=== PATIENT | male | born 1955 | race African-American/Black ===

== ENCOUNTER 2021-12-12 08:31 | Emergency (ER) | payer MEDICARE, MEDICAID ==
[~2021-12-12] VITALS: Ht 172.7 cm; Wt 91.0 kg
[2021-12-12] MEDS ORDERED: NITROGLYCERIN 0.4MG TABLET SL SL PRN (09:00)
[2021-12-12] MEDS ORDERED: ASPIRIN 81MG TABLET PO ONE (09:00)
[2021-12-12 09:35] VITALS: BP 126/86
[2021-12-12 09:40] LABS: BASOPHILS % 0.3 % (0.0-2.0); EOSINOPHILS % 1.2 % (0.0-5.0); HEMATOCRIT. 46.9 % (42.0-52.0); HEMOGLOBIN. 16.3 g/dL (14.0-18.0); LYMPHOCYTES % 25.7 % (20.0-50.0); MEAN CORPUSCULAR HEMOGLOBIN 31.2 pg (28.0-32.0); MEAN CORPUSCULAR VOLUME 89.8 fL (80.0-94.0); MONOCYTES % 9.4 % (2.0-8.0); NEUTROPHILS % 63.4 % (40.0-76.0); PLATELET 189 x1000/uL (130-400); RED BLOOD CELL COUNT 5.23 mill/uL (4.7-6.1); RED CELL DISTRIBUTION WIDTH 13.8 % (11.6-14.6)
[2021-12-12 09:44] LABS: CHLORIDE 108 mEq/L (98-107)
== END 2021-12-12 22:21 | disposition left against medical advice (07) ==
LOC: ER 08:31 → EDBEDREQ 09:42 → ENRESERV 16:22 → ER 22:21 → CANBEDREQ 12-13 17:17
DX: R07.89 Other chest pain (principal); R73.03 Prediabetes; I25.10 Atherosclerotic heart disease of native coronary artery without angina pectoris; E78.5 Hyperlipidemia, unspecified; Z95.5 Presence of coronary angioplasty implant and graft; Z85.46 Personal history of malignant neoplasm of prostate
CPT/HCPCS: 36415; 71045; 80053; 83880; 84484; 85025; 93005; 99285

== ENCOUNTER 2022-03-24 08:43 | Emergency (ER) | payer MEDICARE, MEDICAID ==
[~2022-03-24] VITALS: Ht 172.7 cm; Wt 91.0 kg
[2022-03-24 09:02] VITALS: BP 132/89
== END 2022-03-24 12:03 | disposition left against medical advice (07) ==
LOC: ER 08:43
DX: Z53.21 Procedure and treatment not carried out due to patient leaving prior to being seen by health care provider (principal)

== ENCOUNTER 2023-02-02 09:50 | Emergency (ER) | payer MEDICARE, MEDICAID ==
[~2023-02-02] VITALS: Ht 172.7 cm; Wt 90.7 kg
[2023-02-02 09:59] VITALS: BP 126/81; PULSE 94; RESP 16; TEMP 98.4; O2SAT 97
[2023-02-02 10:44] LABS: BASOPHILS % 0.9 % (0.0-2.0); EOSINOPHILS % 3.4 % (0.0-5.0); HEMATOCRIT. 47.2 % (42.0-52.0); HEMOGLOBIN. 16.2 g/dL (14.0-18.0); MEAN CORPUSCULAR HEMOGLOBIN 31.1 pg (28.0-32.0); MEAN CORPUSCULAR VOLUME 90.7 fL (80.0-94.0); MONOCYTES % 7.9 % (2.0-8.0); NEUTROPHILS % 62.8 % (40.0-76.0); PLATELET 195 x1000/uL (130-400); RED CELL DISTRIBUTION WIDTH 13.8 % (11.6-14.6)
[2023-02-02 10:52] LABS: CHLORIDE 107 mEq/L (98-107)
[2023-02-02 11:00] LABS: CREATINE KINASE 203 IU/L (39-308)
[2023-02-02] MEDS ORDERED: TOPUD MT (12:18)
== END 2023-02-02 12:37 | disposition home or self-care (01) ==
LOC: ER 09:50
DX: R25.2 Cramp and spasm (principal); E78.00 Pure hypercholesterolemia, unspecified; Z90.49 Acquired absence of other specified parts of digestive tract
CPT/HCPCS: 36415; 80053; 82550; 85025; 93971; 99284

== ENCOUNTER 2023-02-05 13:05 | Emergency (ER) | payer MEDICARE, MEDICAID ==
[~2023-02-05] VITALS: Ht 177.8 cm; Wt 98.0 kg
[~2023-02-05 13:05] MED LIST: TOPUD MT
[2023-02-05 14:08] VITALS: O2SAT 98
[2023-02-05 14:33] LABS: BASOPHILS % 0.3 % (0.0-2.0); EOSINOPHILS % 1.9 % (0.0-5.0); HEMATOCRIT. 45.9 % (42.0-52.0); HEMOGLOBIN. 15.7 g/dL (14.0-18.0); LYMPHOCYTES % 31.8 % (20.0-50.0); MEAN CORPUSCULAR HEMOGLOBIN 31.2 pg (28.0-32.0); MEAN CORPUSCULAR VOLUME 91.1 fL (80.0-94.0); MEAN PLATELET VOLUME 7.9 fl (7.4-10.4); MONOCYTES % 10.3 % (2.0-8.0); NEUTROPHILS % 55.7 % (40.0-76.0); PLATELET 201 x1000/uL (130-400); RED BLOOD CELL COUNT 5.04 mill/uL (4.7-6.1); RED CELL DISTRIBUTION WIDTH 13.8 % (11.6-14.6)
[2023-02-05 14:39] LABS: CHLORIDE 108 mEq/L (98-107)
[2023-02-05 15:48] LABS: CLARITY URINE CLEAR (CLEAR); COLOR URINE YELLOW (YELLOW); KETONES URINE NEGATIVE (NEGATIVE); LEUKOCYTE ESTERASE URINE NEGATIVE (NEGATIVE); NITRITE URINE NEGATIVE (NEGATIVE); OCCULT BLOOD URINE NEGATIVE (NEGATIVE); PH URINE 6.5 (4.5-8.0); PROTEIN URINE NEGATIVE (NEGATIVE); SPECIFIC GRAVITY URINE 1.014 (1.005-1.030); UROBILINOGEN URINE 0.2 E.U./dL (0.2-1.0)
[2023-02-05] MEDS ORDERED: SODIUM CHLORIDE 0.9% 1,000 ML IV ONE (16:15)
[2023-02-05] MEDS ORDERED: METOCLOPRAMIDE HCL 10MG/2ML VIAL IV ONE (16:15)
[2023-02-05] MEDS ORDERED: DIPHENHYDRAMINE 50MG/ML VIAL IV ONE (16:15)
[2023-02-05 16:41] LABS: PARTIAL THROMBOPLASTIN TIME 25.6 sec (23.4-31.0); PROTHROMBIN TIME 10.6 sec (9.6-11.0)
[2023-02-05] MEDS ORDERED: TOPUD MT (18:32)
[2023-02-05 18:48] VITALS: BP 136/81; PULSE 75; RESP 18; TEMP 98.3
== END 2023-02-05 18:57 | disposition home or self-care (01) ==
LOC: ER 13:05
DX: R51.9 Headache, unspecified (principal); E78.00 Pure hypercholesterolemia, unspecified; Z90.49 Acquired absence of other specified parts of digestive tract
CPT/HCPCS: 36415; 70450; 80053; 81003; 85025; 85610; 85730; 96374; 96375; 99285; J1200; J2765; J7030

== ENCOUNTER 2023-04-12 12:24 | Emergency (ER) | payer MEDICARE, MEDICAID ==
[~2023-04-12] VITALS: Ht 172.7 cm; Wt 96.0 kg
[2023-04-12 12:32] VITALS: O2SAT 99
[2023-04-12 13:47] LABS: BASOPHILS % 0.2 % (0.0-2.0); EOSINOPHILS % 1.2 % (0.0-5.0); HEMATOCRIT. 48.3 % (42.0-52.0); HEMOGLOBIN. 16.3 g/dL (14.0-18.0); LYMPHOCYTES % 30.2 % (20.0-50.0); MEAN CORPUSCULAR HEMOGLOBIN 30.6 pg (28.0-32.0); MEAN CORPUSCULAR HGB CONC 33.8 g/dL (31.0-37.0); MEAN CORPUSCULAR VOLUME 90.4 fL (80.0-94.0); MEAN PLATELET VOLUME 7.4 fl (7.4-10.4); MONOCYTES % 8.5 % (2.0-8.0); NEUTROPHILS % 59.9 % (40.0-76.0); PLATELET 225 x1000/uL (130-400); RED BLOOD CELL COUNT 5.34 mill/uL (4.7-6.1); RED CELL DISTRIBUTION WIDTH 13.8 % (11.6-14.6); WHITE BLOOD COUNT 6.3 x1000/uL (4.5-11.0)
[2023-04-12 13:58] LABS: CHLORIDE 107 mEq/L (98-107); INDEX HEMOLYSI 1 (1-3); INDEX ICTERIC 1 (1-4); INDEX LIPEMIC 1 (1-3); POTASSIUM 3.5 mEq/L (3.5-5.1); SODIUM 136 mEq/L (136-145)
[2023-04-12 14:08] LABS: ALANINE AMINOTRANSFERASE 31 IU/L (13-61); ALBUMIN 4.1 g/dL (3.4-5.0); ASPARTATE AMINOTRANSFERASE 24 IU/L (15-37); BILIRUBIN TOTAL 0.9 mg/dL (0.1-1.0); CREATININE 1.3 mg/dL (0.6-1.3); GLUCOSE 105 mg/dL (70-105); PROTEIN TOTAL 7.6 g/dL (6.0-8.3); UREA NITROGEN BLOOD 8 mg/dL (7-21)
[2023-04-12 14:26] LABS: CALCIUM 9.2 mg/dL (8.5-10.1); CARBON DIOXIDE 26 mEq/L (21-32)
[2023-04-12 15:46] LABS: CLARITY URINE CLEAR (CLEAR); COLOR URINE YELLOW (YELLOW); GLUCOSE URINE NEGATIVE (NEGATIVE); KETONES URINE NEGATIVE (NEGATIVE); LEUKOCYTE ESTERASE URINE NEGATIVE (NEGATIVE); NITRITE URINE NEGATIVE (NEGATIVE); OCCULT BLOOD URINE NEGATIVE (NEGATIVE); PROTEIN URINE NEGATIVE (NEGATIVE); UROBILINOGEN URINE 0.2 E.U./dL (0.2-1.0)
[2023-04-12] MEDS ORDERED: TOPUD MT (20:56)
[2023-04-12] MEDS ORDERED: TAMS-11 MT (20:56)
[2023-04-12 21:30] VITALS: BP 156/76; PULSE 77; RESP 18; TEMP 98.4
== END 2023-04-12 21:31 | disposition home or self-care (01) ==
LOC: ER 12:24 → CANBEDREQ 21:04 → ER 21:31
DX: R10.813 Right lower quadrant abdominal tenderness (principal); N40.0 Benign prostatic hyperplasia without lower urinary tract symptoms; E78.00 Pure hypercholesterolemia, unspecified; I51.9 Heart disease, unspecified; Z90.49 Acquired absence of other specified parts of digestive tract
CPT/HCPCS: 36415; 74176; 80053; 81003; 85025; 99284

== ENCOUNTER 2023-11-25 07:25 | Emergency (ER) | payer MEDICARE, MEDICAID ==
[~2023-11-25] VITALS: Ht 172.7 cm; Wt 91.0 kg
[~2023-11-25 07:25] MED LIST changes: +TAMS-11 MT
[2023-11-25 07:41] VITALS: BP 115/79; PULSE 100; RESP 20; TEMP 98.3; O2SAT 97
[2023-11-25] MEDS ORDERED: BO1 TP (08:36)
== END 2023-11-25 09:06 | disposition home or self-care (01) ==
LOC: ER 07:25
DX: L29.9 Pruritus, unspecified (principal); E78.00 Pure hypercholesterolemia, unspecified; Z90.49 Acquired absence of other specified parts of digestive tract
CPT/HCPCS: 99282

== ENCOUNTER 2024-01-07 06:44 | Emergency (ER) | payer MEDICARE, MEDICAID ==
[~2024-01-07] VITALS: Ht 172.7 cm; Wt 91.0 kg
[~2024-01-07 06:44] MED LIST changes: +BO1 TP
[2024-01-07 07:02] VITALS: O2SAT 98
[2024-01-07] MEDS ORDERED: DEX6 MT (09:36)
[2024-01-07] MEDS ORDERED: AZIT250T12 MT (09:36)
[2024-01-07 10:34] VITALS: BP 135/83; PULSE 82; RESP 18; TEMP 97.9
== END 2024-01-07 10:44 | disposition home or self-care (01) ==
LOC: ER 06:44
DX: R05.9 Cough, unspecified (principal); Z20.822 Contact with and (suspected) exposure to COVID-19
CPT/HCPCS: 71045; 87426; 87804; 99284

== ENCOUNTER 2024-04-10 08:04 | Emergency (ER) | payer MEDICARE, MEDICAID ==
[~2024-04-10] VITALS: Ht 172.7 cm; Wt 100.0 kg
[~2024-04-10 08:04] MED LIST changes: +AZIT250T12 MT; +DEX6 MT
[2024-04-10 08:07] VITALS: PULSE 99; O2SAT 98
[2024-04-10 08:11] VITALS: BP 134/85; RESP 18; TEMP 98; O2SAT 100
== END 2024-04-10 10:32 | disposition home or self-care (01) ==
LOC: ER 08:17
DX: G89.29 Other chronic pain (principal); M54.50 Low back pain, unspecified; E11.9 Type 2 diabetes mellitus without complications; Z98.890 Other specified postprocedural states; Z79.899 Other long term (current) drug therapy
CPT/HCPCS: 72070; 99283

== ENCOUNTER 2024-05-03 06:42 | Emergency (ER) | payer MEDICARE, MEDICAID ==
[~2024-05-03] VITALS: Ht 175.3 cm; Wt 95.5 kg
[2024-05-03 06:58] VITALS: O2SAT 99
[2024-05-03] MEDS: KETOROLAC 30MG/ML VIAL IM ONE (08:50)
[2024-05-03] MEDS: METHOCARBAMOL 500MG TABLET PO ONE (08:50)
[2024-05-03 09:03] LABS: CHLORIDE 109 mEq/L (98-107); POTASSIUM 4.1 mEq/L (3.5-5.1); SODIUM 139 mEq/L (136-145)
[2024-05-03 09:04] LABS: CARBON DIOXIDE 25 mEq/L (21-32)
[2024-05-03 09:05] LABS: CALCIUM 9.8 mg/dL (8.7-10.4)
[2024-05-03 09:09] LABS: CREATININE 1.1 mg/dL (0.6-1.3)
[2024-05-03 09:10] LABS: GLUCOSE 103 mg/dL (70-105); UREA NITROGEN BLOOD 11 mg/dL (9-23)
[2024-05-03 09:13] LABS: BASOPHILS % 0.5 % (0.0-2.0); HEMATOCRIT. 45.2 % (42.0-52.0); HEMOGLOBIN. 15.5 g/dL (14.0-18.0); LYMPHOCYTES % 28.3 % (20.0-50.0); MEAN CORPUSCULAR HEMOGLOBIN 31.3 pg (28.0-32.0); MEAN CORPUSCULAR HGB CONC 34.3 g/dL (31.0-37.0); MEAN CORPUSCULAR VOLUME 91.2 fL (80.0-94.0); MEAN PLATELET VOLUME 8.2 fl (7.4-10.4); MONOCYTES % 9.1 % (2.0-8.0); NEUTROPHILS % 61.1 % (40.0-76.0); PLATELET 186 x1000/uL (130-400); RED BLOOD CELL COUNT 4.95 mill/uL (4.7-6.1); RED CELL DISTRIBUTION WIDTH 13.9 % (11.6-14.6); WHITE BLOOD COUNT 4.9 x1000/uL (4.5-11.0)
[2024-05-03 09:33] LABS: CLARITY URINE CLEAR (CLEAR); COLOR URINE YELLOW (YELLOW); GLUCOSE URINE NEGATIVE (NEGATIVE); KETONES URINE NEGATIVE (NEGATIVE); LEUKOCYTE ESTERASE URINE NEGATIVE (NEGATIVE); NITRITE URINE NEGATIVE (NEGATIVE); OCCULT BLOOD URINE NEGATIVE (NEGATIVE); PH URINE 6.5 (4.5-8.0); PROTEIN URINE NEGATIVE (NEGATIVE); SPECIFIC GRAVITY URINE 1.015 (1.005-1.030); UROBILINOGEN URINE 0.2 E.U./dL (0.2-1.0)
[2024-05-03 09:50] LABS: ALANINE AMINOTRANSFERASE 28 IU/L (10-49); ALBUMIN 4.7 g/dL (3.2-4.8); ASPARTATE AMINOTRANSFERASE 28 IU/L (<34); BILIRUBIN DIRECT 0.2 mg/dL (<=3.0); BILIRUBIN TOTAL 0.6 mg/dL (0.1-1.0); PROTEIN TOTAL 6.9 g/dL (6.0-8.3)
[2024-05-03] MEDS ORDERED: IBUP-2029 MT (10:03)
[2024-05-03] MEDS ORDERED: METH-653 MT (10:03)
[2024-05-03] MEDS ORDERED: TAMS-11 MT (10:07)
[2024-05-03 10:28] VITALS: BP 121/70; PULSE 99; RESP 15; TEMP 37.00296; O2SAT 99
== END 2024-05-03 13:29 | disposition home or self-care (01) ==
LOC: ER 06:42
DX: S33.5XXA Sprain of ligaments of lumbar spine, initial encounter (principal); E78.00 Pure hypercholesterolemia, unspecified; Z90.89 Acquired absence of other organs; Z79.899 Other long term (current) drug therapy; X58.XXXA Exposure to other specified factors, initial encounter; Y93.89 Activity, other specified; Y92.89 Other specified places as the place of occurrence of the external cause; Y99.8 Other external cause status
CPT/HCPCS: 99285; 74176; 80076; 80048; 81003; 85025; 36415; 96372; J1885

== ENCOUNTER 2024-09-07 07:02 | Emergency (ER) | payer MEDICARE, MEDICAID ==
[~2024-09-07] VITALS: Ht 172.7 cm; Wt 90.7 kg
[~2024-09-07 07:02] MED LIST changes: +IBUP-2029 MT; +METH-653 MT
[2024-09-07 07:18] VITALS: O2SAT 98
[2024-09-07 07:57] LABS: BASOPHILS % 0.3 % (0.0-2.0); HEMATOCRIT. 46.1 % (42.0-52.0); HEMOGLOBIN. 15.4 g/dL (14.0-18.0); MEAN CORPUSCULAR HEMOGLOBIN 30.7 pg (28.0-32.0); MEAN CORPUSCULAR HGB CONC 33.4 g/dL (31.0-37.0); MEAN CORPUSCULAR VOLUME 92.1 fL (80.0-94.0); MEAN PLATELET VOLUME 7.9 fl (7.4-10.4); MONOCYTES % 8.7 % (2.0-8.0); PLATELET 199 x1000/uL (130-400); RED BLOOD CELL COUNT 5.01 mill/uL (4.7-6.1); RED CELL DISTRIBUTION WIDTH 13.6 % (11.6-14.6); WHITE BLOOD COUNT 5.7 x1000/uL (4.5-11.0)
[2024-09-07 08:09] LABS: CHLORIDE 109 mEq/L (98-107); POTASSIUM 4.3 mEq/L (3.5-5.1); SODIUM 140 mEq/L (136-145)
[2024-09-07 08:10] LABS: CARBON DIOXIDE 21 mEq/L (21-32)
[2024-09-07 08:11] LABS: CALCIUM 9.9 mg/dL (8.7-10.4)
[2024-09-07 08:15] LABS: CREATININE 1.2 mg/dL (0.6-1.3); GLUCOSE 115 mg/dL (70-105)
[2024-09-07 08:16] LABS: UREA NITROGEN BLOOD 14 mg/dL (9-23)
[2024-09-07 08:17] LABS: ALANINE AMINOTRANSFERASE 25 IU/L (10-49); ALBUMIN 4.5 g/dL (3.2-4.8); ASPARTATE AMINOTRANSFERASE 28 IU/L (<34)
[2024-09-07 08:18] LABS: BILIRUBIN DIRECT 0.2 mg/dL (<=3.0); BILIRUBIN TOTAL 0.6 mg/dL (0.1-1.0)
[2024-09-07 08:35] LABS: TROPONIN I HIGH SENSITIVITY < 4 ng/L (3.0-53)
[2024-09-07] MEDS: HYDROCODONE/ACETAMINOPHEN 5/325MG TABLET PO ONE (09:17)
[2024-09-07] MEDS: PANTOPRAZOLE 40MG DR TABLET PO ONE (09:17)
[2024-09-07 10:01] LABS: CLARITY URINE CLEAR (CLEAR); COLOR URINE YELLOW (YELLOW); GLUCOSE URINE NEGATIVE (NEGATIVE); KETONES URINE NEGATIVE (NEGATIVE); LEUKOCYTE ESTERASE URINE NEGATIVE (NEGATIVE); NITRITE URINE NEGATIVE (NEGATIVE); OCCULT BLOOD URINE NEGATIVE (NEGATIVE); PROTEIN URINE NEGATIVE (NEGATIVE); SPECIFIC GRAVITY URINE 1.011 (1.005-1.030); UROBILINOGEN URINE 0.2 E.U./dL (0.2-1.0)
[2024-09-07] MEDS ORDERED: PANT40SU MT (10:26)
[2024-09-07 11:01] VITALS: BP 137/82; PULSE 87; RESP 15; TEMP 36.66960; O2SAT 100
== END 2024-09-07 11:03 | disposition home or self-care (01) ==
LOC: ER 07:02
DX: R10.84 Generalized abdominal pain (principal); Z79.899 Other long term (current) drug therapy; Z90.89 Acquired absence of other organs; E78.00 Pure hypercholesterolemia, unspecified
CPT/HCPCS: 36415; 74176; 80048; 80076; 81003; 84484; 85025; 93005; 99284